=== PATIENT | male | born 1950 | race Caucasian/White ===

== ENCOUNTER → 2018-03-30 | Outpatient (CLI) | payer MEDICARE, OTHER ==
--- NOTE | 2018-03-31 13:05 | RAD ---
Examination: PET W CT SKULL TO MIDTHIGH History: Squamous cell carcinoma with a head and neck. Squamous cell carcinoma of the skin of the scalp. Comparison/Correlation: None Findings: 14.7 F 18 FDG was intravenously administered for that CT exam from the skull base to the proximal thighs. Serum blood glucose at the time of exam was 107 mg/dL. SUV max of the liver is 2.8. Multiple lymph nodes are present at the right level 2A region with intense uptake. SUV max of up to 9 is identified involving these lymph nodes which extend along the right jugular chain to the right supraglottic region. Lymph nodes at the level 2A region measure up to 1.5 cm x 2.6 cm. No enlarged lymph nodes on the left side of the neck. No abnormal uptake on the left side of neck. Postoperative cervical spine fusion noted. Nonspecific uptake at the right sternoclavicular region probably represents degenerative change. No enlarged thoracic lymph nodes. Bilateral mild lower lobe atelectasis is present. Extensive diffuse emphysematous involvement of the lung pérez noted. Linear atelectasis bilaterally the costophrenic sulci noted. Density within the distal trachea which probably represents retained mucus is noted. Pectus excavatum noted. Uptake of the tracer involving the abdomen and pelvis is unremarkable. Significant right hydronephrosis is present with cortical thinning. Findings appear to represent right ureteropelvic junction obstruction. No hydroureter identified. No radiopaque collecting system calculi. No enlarged abdominal or pelvic lymph nodes. Moderate stool colon is present. Urinary bladder is unremarkable. Impression: Extensive lymphadenopathy with intense uptake involving the right level 2A level extending along the right jugular chain to the right supraclavicular region. Right ureteropelvic junction obstruction with marked hydronephrosis. Correlate with history and prior exams if available.
== END | disposition home or self-care (01) ==
LOC: PETSC 13:34
DX: C44.42 Squamous cell carcinoma of skin of scalp and neck (principal); J98.11 Atelectasis; N13.30 Unspecified hydronephrosis; Z98.1 Arthrodesis status
CPT/HCPCS: 78815; A9552

== ENCOUNTER → 2018-04-13 | Outpatient (CLI) | payer MEDICARE, OTHER ==
[~2018-04-13] MED LIST: REGADENOSON 0.4 MG/5 ML DISP.SYRIN. IV ONE
--- NOTE | 2018-04-13 14:40 | CARD ---
MR#: [id number] Date of Study: 04/13/2018 Ordering Physician: SHERWIN ELIZABETH, Referring Physician: SHERWIN ELIZABETH, Tech: Suellen Nieto [facility] APPROVED REPORT EXAM: Two-dimensional and M-mode echocardiogram with Doppler and color Doppler. Other Information Quality : Technically LimitedHR: 96bpm Rhythm : NSRTechnically limited study due to body habitus and smoking. INDICATION Murmur 2D DIMENSIONS RVDd2.2 (2.9-3.5cm)IVSd1.3 (0.7-1.1cm) Aortic Root(2D)3.0 (2.0-3.7cm)LVDd3.5 (3.9-5.9cm) LVOT Diameter2.4 (1.8-2.4cm)PWd1.3 (0.7-1.1cm) LVDs2.5 (2.5-4.0cm)FS (%) 29.9 % SV30.0 mlLVEF(%)58.2 (>50%) M-Mode DIMENSIONS Left Atrium(MM)2.77 (2.5-4.0cm)Aortic Root3.39 (2.2-3.7cm) Aortic Valve AoV Peak Nico.383.3cm/sAoV VTI61.6cm AO Peak GR.58.8mmHgLVOT Peak Nico.104.8cm/s AO Mean GR.29mmHgAVA (VMAX)1.21cm2 LISA (VTI)1.20cm2 Mitral Valve MV E Rqrtbudm24.1cm/sMV E Peak Gr.4mmHg MV DECEL [id number] A Nevftqfl45.6cm/s MV E Mean Gr.2mmHgE/A Ratio0.6 MV A [id number] Pulmonary Valve PV Peak Aagkcrjl81.2cm/s LEFT VENTRICLE The left ventricle is normal size. There is mild concentric left ventricular hypertrophy. The left ve ntricular systolic function is normal The Ejection Fraction is 55-60%. There is normal LV segmental w all motion. Transmitral Doppler flow pattern is Grade I-abnormal relaxation pattern. RIGHT VENTRICLE The right ventricle is normal size. There is normal right ventricular wall thickness. The right ventr icular systolic function is normal. ATRIA The left atrium size is normal. The right atrium size is normal. The interatrial septum is intact wit h no evidence for an atrial septal defect or patent foramen ovale as noted on 2-D or Doppler imaging. AORTIC VALVE A bicuspid aortic valve cannot be excluded. The aortic valve is moderately to severely calcified. Dop pler and Color Flow revealed mild aortic regurgitation. There is moderate valvular aortic stenosis. C alculated aortic valve area is 1.2 cm2 with maximum pressure gradient of 59 mmHg and mean pressure gr adient of 29 mmHg. MITRAL VALVE The mitral valve is normal in structure and function. There is no evidence of mitral valve prolapse. There is no mitral valve stenosis. Doppler and Color Flow revealed no mitral valve regurgitation note d. TRICUSPID VALVE The tricuspid valve is normal in structure and function. Doppler and Color Flow revealed no tricuspid valve regurgitation noted. There is no tricuspid valve prolapse or vegetation. There is no tricuspid valve stenosis. PULMONIC VALVE The pulmonary valve is normal in structure and function. Doppler and Color Flow revealed no pulmonic valvular regurgitation. There is no pulmonic valvular stenosis. GREAT VESSELS The aortic root is normal in size. PERICARDIAL EFFUSION There is no evidence of significant pericardial effusion. Critical Notification Critical Value: No <Conclusion> The left ventricular systolic function is normal The Ejection Fraction is 55-60%. There is normal LV segmental wall motion. Transmitral Doppler flow pattern is Grade I-abnormal relaxation pattern. Moderate valvular aortic stenosis with MG 29 mm Hg and LISA 1.2 cm2.. Mild aortic regurgitation. There is no evidence of significant pericardial effusion. Signed by : Latrell Nava, Electronically Approved : 04/13/2018 14:40:10
--- NOTE | 2018-04-13 15:04 | RAD ---
MR#: [id number] Date of Study: 04/13/2018 Ordering Physician: SHERWIN SEQUEIRA, Referring Physician: CATRINA YEAGER Tech: Brenna Salazar RT (R) (N) APPROVED REPORT Test Type: Pharmacological Stress Nurse/Tech: Cb LEMONS Test Indications: Pre Op clearance Cardiac History: New dx of heart murmur. Dyspnea, Smoker x 50 years Medications: See EMR Medical History: See EMR Resting ECG: SR Resting Heart Rate: 79 bpm Resting Blood Pressure: 151/68mmHg Pretest Chest Pain: No chest pain Nurse/Tech Notes Lungs diminished throughout, Heart tones = Murmur auscultated. Consent: The procedure was explained to the patient in lay terms. Informed consent was witnessed. Donald eout was entered into [facility]. History and Stress Test performed by GELY Salazar Pharm. Details Pharmacologic stress testing was performed using 0.4mg per 5ml of regadenoson given intravenously ove r 7-10 seconds. Stress Symptoms No chest pain or symptoms. POST EXERCISE Reason for Termination: Infusion complete Max HR: 107 bpm Max Blood Pressure: 112/60mmHg Chest Pain: No. Arrhythmia: No. ST Change: No. INTERPRETATION Stress EKG Conclusion: The resting EKG shows a sinus rhythm, small septal Q waves and nonspecific ST segment changes. The stress EKG shows no significant changes from baseline. No EKG evidence of stress-induced ischemia. Imaging Protocol IMAGE PROTOCOL: Rest Tc-99m/stress Tc-99m 1 day Rest: Stress: Viability: Radiopharm.Tc99m BjfkvgyggWo60h Sestamibi Hkvm05iSg 32mCi Duration 17min. 13min. Img Date 04/13/2018 04/13/2018 Inj-Img Shkk25odc. 60min. Rest Admin Site:IV - Left AntecubitalAdministrator:RT Joleen (R)(N) Stress Admin Site: IV - Left AntecubitalAdministrator: GELY Salazar STRESS DATA End Diast. Vol.86.0mlLVEDV index BSA50.0ml End Syst. Vol.34.0mlLVESV index BSA20.0ml Myocardial Edef686.0gEject. Slrourzb00.0% Stress Scores Regional WT2.00Summed WT11.00 Regional WM0.00Summed WM3.00 LV Perfusion The stress scans showed no significant defects. The rest scans showed no significant defects. Nuclear imaging shows no reversible ischemia or infarct. Wall Motion Intact LV systolic function with an ejection fraction of 60%. LV Perf. Quant 17 Seg. SSS0.00 17 Seg. SRS0.00 17 Seg. SDS0.00 Stress Defect Extent (% LAD)0.00Rest Defect Extent (% LAD)0.00Rev. Defect Extent (% LAD)0.00 Stress Defect Extent (% LCX) 0.00Rest Defect Extent (% LCX)0.00Rev. Defect Extent (% LCX)0.00 Stress Defect Extent (% RCA)0.00Rest Defect Extent (% RCA)0.00Rev. Defect Extent (% RCA)0.00 Stress Defect Extent (% BRANDON)0.00Rest Defect Extent (% BRANDON)0.00Rev. Defect Extent (% BRANDON)0.00 Conclusion 1. No EKG evidence of stress-induced ischemia. 2. Nuclear imaging shows no reversible ischemia or infarct. 3. Normal left ventricular systolic function with an ejection fraction of 60%. 4. Low risk Lexiscan nuclear stress test. Signed by : Sherwin Sequeira MD Electronically Approved : 04/13/2018 15:03:34
== END | disposition home or self-care (01) ==
LOC: NM 09:58
PROVIDERS: ATTEND Internal Medicine Cardiovascular Disease
DX: Z01.818 Encounter for other preprocedural examination (principal); I35.2 Nonrheumatic aortic (valve) stenosis with insufficiency; Z87.891 Personal history of nicotine dependence
CPT/HCPCS: 78452; 93017; 93306; 96374; 96375; 96376; A9500; J2785

== ENCOUNTER → 2018-08-24 | Outpatient (CLI) | payer MEDICARE, OTHER ==
[~2018-08-24] MED LIST changes: +ALPR0.5T PO; +ASPI81TA50 PO; +FENT1PAT90 TD; +HEPARIN PF 500 UNIT/5 ML DISP.SYRIN. IV ONE; +LORA1TAB PO; +OXYC1TAB22 PO; +PILO5TAB11 PO; +RANI150T2 PO; -REGADENOSON 0.4 MG/5 ML DISP.SYRIN. IV ONE; +SIMV20TA3 PO; +TAMS0.4C2 PO
--- NOTE | 2018-08-24 14:25 | NUR ---
accessed left chest port for PET scan per asceptic technique per protocol. port de-accessed post hep flush per protocol at this time.
--- NOTE | 2018-08-24 16:40 | RAD ---
FDG tumor localization scan, PET/CT, 08/24/2018: History: Restaging parotid cancer with metastases Following IV injection of 13.0 mCi of 18 F-FDG, imaging was performed from the skull base to the proximal thighs. The noncontrast CT component was performed for attenuation correction and anatomic localization purposes rather than for primary diagnosis. The patient's blood glucose level at the time of injection was 103 MG/DL. Comparison is made to a study from 03/30/2018. Multiple nodular foci of increased FDG uptake in the right neck have markedly regressed since the previous study. There is only mild low-level residual FDG uptake in this region, in a more diffuse than focal pattern. This is likely secondary to radiation therapy. There is persistent streaky muscular uptake in the right suprascapular region. There are several new foci of FDG uptake in the anterior mediastinum and near the level of the suprasternal notch. The most prominent anterior mediastinal focus demonstrates a maximum SUV of 8.7. There is slight associated retrosternal soft tissue thickening. Several of these foci lie near the Port-A-Cath within the left innominate vein. The 18 F-FDG was injected in the left Port-A-Cath. An injection related artifact cannot be entirely excluded. No abnormal pulmonary FDG uptake is seen. Normal GI tract and urinary tract activity is present in the abdomen and pelvis. No hypermetabolic abdominal or pelvic lesion is seen. Incidental CT findings include the presence of pulmonary emphysema. There are elongated parenchymal opacities in the lung bases posteriorly probably representing scarring and/or chronic atelectasis. There is severe right hydronephrosis which has worsened with increasing parenchymal loss. There is mild nonspecific prostatic enlargement. IMPRESSION: 1. Regression of the right cervical hypermetabolic adenopathy. 2. New small foci of increased activity in the anterior mediastinum, likely on a metastatic basis. 3. Worsening severe right hydronephrosis with increasing renal parenchymal loss.
== END | disposition home or self-care (01) ==
LOC: PETSC 12:03
PROVIDERS: ATTEND Radiology Radiation Oncology
DX: C07 Malignant neoplasm of parotid gland (principal); N13.30 Unspecified hydronephrosis; N40.0 Benign prostatic hyperplasia without lower urinary tract symptoms; R59.0 Localized enlarged lymph nodes
CPT/HCPCS: 78815; A9552

== ENCOUNTER 2018-09-12 08:38 | Outpatient (CLI) | payer MEDICARE, OTHER ==
[2018-09-12] VITALS (12 sets, daily range): BP systolic 103–148; BP diastolic 50–86
[~2018-09-12] VITALS: Ht 172.7 cm; Wt 61.2 kg
[~2018-09-12 08:38] MED LIST changes: -HEPARIN PF 500 UNIT/5 ML DISP.SYRIN. IV ONE
[2018-09-12 09:38] LABS: BASO % 1 % (0-3); EOS # 0.2 x10^3/uL (0.0-0.7); EOS % 5 % (0-3); HEMATOCRIT 38.6 % (39.0-53.0); HEMOGLOBIN 12.9 g/dL (13.0-17.5); LYMPH % 26 % (24-48); MEAN CORPUSCULAR HEMOGLOBIN 32 pg (25-35); MEAN CORPUSCULAR HGB CONC 33 g/dL (31-37); MEAN CORPUSCULAR VOLUME 96 fL (79-100); MONO # 0.4 x10^3/uL (0.0-1.1); MONO % 10 % (0-9); NEUT # 2.1 x10^3uL (1.8-7.7); NEUT % 58 % (31-73); PLATELET COUNT 168 x10^3/uL (140-400); RED BLOOD COUNT 4.01 x10^6/uL (4.30-5.70); RED CELL DISTRIBUTION WIDTH 13.2 % (11.5-14.5); WHITE BLOOD COUNT 3.7 x10^3/uL (4.0-11.0)
[2018-09-12] MEDS ORDERED: LIDOCAINE WITH 8.4% SOD BICARB 3 ML DISP.SYRIN. ONE (09:54)
[2018-09-12 09:55] LABS: PROTHROMBIN TIME PATIENT 12.8 SEC (11.7-14.0)
[2018-09-12] MEDS ORDERED: NALOXONE 0.4 MG/ML VIAL. ONE (10:03)
[2018-09-12] MEDS ORDERED: fentaNYL PF VIAL 100 MCG/2 ML VIAL ONE (10:03)
[2018-09-12] MEDS ORDERED: FLUMAZENIL 0.5 MG/5 ML VIAL. IV ONE (10:03)
[2018-09-12] MEDS ORDERED: MIDAZOLAM HCL/PF 2 MG/2 ML VIAL. ONE (10:03)
[2018-09-12] MEDS ORDERED: MIDAZOLAM HCL/PF 2 MG/2 ML VIAL. IV ONE (10:15)
[2018-09-12] MEDS ORDERED: fentaNYL PF VIAL 100 MCG/2 ML VIAL IV ONE (10:15)
[2018-09-12] MEDS ORDERED: LIDOCAINE WITH 8.4% SOD BICARB 3 ML DISP.SYRIN. IJ ONE (10:15)
--- NOTE | 2018-09-12 10:30 | PDOC ---
MODERATE SEDATION ASSESSMENT RISKS/ALTERNATIVES Risks/Alternatives Risks and alternatives of this type of sedation and procedure discussed with: RISK/ALTERNATIVES: Patient H & P ON CHART H & P H & P on chart and reviewed for co-morbid conditions and appropriate labs. H&P ON CHART: Yes STATUS PREG STATUS ASSESSED: Yes MEDS/ALLERGIES REVIEWED Meds/Allergies Reviewed Medications and Allergies including time and route of recently administered narcotics and sedatives. MEDS/ALLERGIES REVIEWED: Yes ASA RATING ASA RATING: II AIRWAY ASSESSMENT Airway Assessment Airway patency, oral function limitations, presence of caps, crowns, dentures, partials, and ability to extend neck assessed. AIRWAY ASSESSMENT: Yes MALLAMPATI SCORE MALLAMPATI SCORE: II PRE-SEDATION ASSESSMENT PRE-SEDATION ASSESSMENT: Yes TOOTIE BAIG MD Sep 12, 2018 10:30
--- NOTE | 2018-09-12 10:31 | PDOC ---
BRIEF OPERATIVE NOTE Pre-Op Diagnosis Parotid cancer and mediastinal mass Post-Op Diagnosis same Procedure Performed CT Fine needle biopsy of mediastinal mass Surgeon April Anesthesia Type: Conscious Sedation Specimens Obtained 3 x 25g fine needle aspirates Complications No immediate TOOTIE BAIG MD Sep 12, 2018 10:31
--- NOTE | 2018-09-12 10:33 | PDOC1 ---
History and Physical Date of Procedure Date of Admission History of Present Illness Reason for Visit Adult with parotid cancer and mediastinal mass Past Medical History Past Medical History see nursing pre-op assessment Current Medications Current Medications Current Medications Lidocaine/Sodium Bicarbonate (Buffered Lidocaine 1%) 3 ml STK-MED ONCE .ROUTE ; Start 09/12/18 at 09:54; Stop 09/12/18 at 09:55; Status DC Midazolam HCl (Versed) 2 mg STK-MED ONCE .ROUTE ; Start 09/12/18 at 10:03; Stop 09/12/18 at 10:04; Status DC Fentanyl Citrate (Fentanyl 2ml Vial) 100 mcg STK-MED ONCE .ROUTE ; Start at 10:03; Stop 09/12/18 at 10:04; Status DC Flumazenil (Romazicon) 0.5 mg STK-MED ONCE IV ; Start 09/12/18 at 10:03; Stop at 10:04; Status DC Naloxone HCl (Narcan) 0.4 mg STK-MED ONCE .ROUTE ; Start 09/12/18 at 10:03; Stop 09/12/18 at 10:04; Status DC Lidocaine/Sodium Bicarbonate (Buffered Lidocaine 1%) 3 ml 1X ONCE IJ ; Start at 10:15; Stop 09/12/18 at 10:16; Status DC Midazolam HCl (Versed) 2 mg 1X ONCE IV ; Start 09/12/18 at 10:15; Stop at 10:16; Status DC Fentanyl Citrate (Fentanyl 2ml Vial) 100 mcg 1X ONCE IV ; Start 09/12/18 at 10: 15; Stop 09/12/18 at 10:16; Status DC Active Scripts Active Reported Salagen (Pilocarpine Hcl) 5 Mg Tablet 5 Mg PO TID Xanax (Alprazolam) 0.5 Mg Tablet 1 Tab PO TID Tamsulosin Hcl 0.4 Mg Cap.er.24h 0.4 Mg PO DAILY Simvastatin 20 Mg Tablet 20 Mg PO HS Ranitidine Hcl 150 Mg Tablet 150 Mg PO BID Lorazepam 1 Mg Tablet 1 Mg PO TID Percocet 10-325 Mg Tablet (Oxycodone/Acetaminophen) 1 Each Tablet 1 Tab PO PRN Q6HRS PRN Allergies Allergies: Coded Allergies: No Known Drug Allergies (Unverified , 04/13/18) Physical Exam Vital Signs Vital Signs Date Time Temp Pulse Resp B/P (MAP) Pulse Ox O2 Delivery O2 Flow Rate FiO2 09/12/18 10:25 74 14 117/59 (78) 96 Nasal Cannula 2.0 09/12/18 10:00 98.0 98.0 Other see nursing pre-op assessment Assessment Assessment Parotid cancer and mediastinal mass Plan Plan CT Fine needle biopsy TOOTIE BAIG MD Sep 12, 2018 10:33
[2018-09-12] MEDS ORDERED: HEPARIN PF 500 UNIT/5 ML DISP.SYRIN. IV ONE (12:30)
--- NOTE | 2018-09-12 12:51 | NUR ---
discharge notes; Pt is discharged home. Pt's VSS is stable. Pt ate lunch. Port-A- Cath was deaccessed by the other nurse, Keily. Discharge instructions were reviewed by this nurse with pt and family member. Pt and family member verbalized understanding. Pt's belongings were back to pt. Pt was taken to lobby by Keily LEMONS via W/C.
--- NOTE | 2018-09-13 08:43 | RAD ---
Procedure: CT-guided fine-needle biopsy of a retrosternal soft tissue mass Clinical Indication: 68-year-old with history of parotid tumor, abnormal retrosternal soft tissue mass on PET scan Sedation: Conscious sedation was administered with a total intraprocedural dldl-vp-psqu time of 20 minutes. The patient was monitored by a qualified independent observer throughout the time of sedation. Please refer to the medical record for exact doses of medications utilized to achieve moderate sedation. Antibiotics: None Sterility: The procedure was performed in its entirety using appropriate elements of sterile technique. Consent: The procedure was explained in its entirety to the patient or the patients designated floor representative by a member of the treatment team, including a discussion of the risks, benefits and commonly accepted alternatives to the procedure, as well as the expected consequences of no therapy whatsoever. Discussion of the risks included, but was not limited to, those that are most frequent and those that are rare but possibly severe or life-threatening, as well as the possibility of unforeseen complications. Technique and Findings: Following informed consent, the patient was prepped and draped in usual sterile fashion. 1% lidocaine was used to achieve local anesthesia over the area of interest. A small dermatotomy was made. Under periodic CT surveillance, a 25-gauge needle was advanced into the most cephalic aspect of the retrosternal soft tissue mass. The suprasternal notch. Due to close proximity of this mass to the great vessels, as well as the adjacent veins and nerves, core biopsy was not performed. Instead, a 25-gauge needle was used to perform fine-needle aspiration of the soft tissue density, with the specimen. By an on-site anatomic pathology manager. A total of 3 separate passes using 3 separate 25-gauge needles were performed. Following removal of the final needle, hemostasis was achieved with manual compression. Postprocedural CT scan demonstrated no mediastinal hematoma. Complications: No immediate Impression: 1. CT-guided fine-needle biopsy of a retrosternal soft tissue mass as described PQRS Compliance Statement: One or more of the following individualized dose reduction techniques were utilized for this examination: 1. Automated exposure control 2. Adjustment of the mA and/or kV according to patient size 3. Use of iterative reconstruction technique
--- NOTE | 2018-09-14 16:12 | PATHOLOGY ---
Note [facility] Accession Number: [id number] TESTS RESULT FLAG UNITS REF RANGE LAB Clinician Provided Cytology Information No. of containers..01 Other (Miscellaneous) Source: [A] 01 MEDIASTINAL MASS FNA DIAGNOSIS: [A] 02 MEDIASTINAL MASS FNA POSITIVE FOR MALIGNANT CELLS. CLUSTERS OF MALIGNANT CELLS HAVING FEATURES OF POORLY DIFFERENTIATED CARCINOMA, FAVOR ADENOCARCINOMA. THE CASE IS ALSO EXAMINED BY DR. HILL, CYTOPATHOLOGIST, WHO CONCURS WITH THE DIAGNOSIS. THIS INTERPRETATION INCLUDES EVALUATION OF A CELL BLOCK. Signed out by: 02 Jovi Gandara MD, Pathologist NPI- [id number] Performed by: Grant Deluca, Guide Domestic [employer] ([facility]) Gross description: 01 30ML, PINK, CLOUDY /LCS FLAG LEGEND: L-Low Normal,H-High Normal,LL-Alert Low,HH-Alert High <-Panic Low,>-Panic High,A-Abnormal,AA-Critical Abnormal Performed at: [facility] [address] [place] [address] Michael Pierce MD, [address] [facility] [address] [place] [address] Jovi Gandara MD, Specimen Comment: A courtesy copy of this report has been sent to Specimen Comment: [phone]. Specimen Comment: Report sent to Performed at: 01 [facility] [place] [address], [place], [place] [id number] MD Michael Pierce MD Phone: [phone]
== END 2018-09-12 12:55 | disposition home or self-care (01) ==
LOC: INTRAD 08:38
PROVIDERS: ATTEND Radiology Radiation Oncology
DX: C78.1 Secondary malignant neoplasm of mediastinum (principal); C07 Malignant neoplasm of parotid gland; Z79.01 Long term (current) use of anticoagulants
CPT/HCPCS: 10009; 36415; 85025; 85610; J2250; J3010; 88173; 88305; 99152

== ENCOUNTER → 2018-11-15 | Outpatient (CLI) | payer MEDICARE, OTHER ==
[2018-09-12 12:15] VITALS: BP 111/57
[~2018-11-15] MED LIST changes: +HEPARIN PF 500 UNIT/5 ML DISP.SYRIN. IV ONE
[2018-11-15 08:55] LABS: CREATININE 1.5 mg/dL (0.7-1.3); GFR 46.7
--- NOTE | 2018-11-15 10:46 | RAD ---
CT of the neck without contrast, 11/15/2018: History: Parotid cancer, left occipital region mass Noncontrast scans were obtained and compared to a study from 03/22/2018. The study is compromised by the lack of IV contrast. The right cervical adenopathy is seen on the previous study appears to have regressed, however, the residual densities cannot be clearly from normal structures due to the lack of IV contrast and obscuration of fat planes in the right neck. There are residual abnormal densities along the inferior aspect of the right parotid gland. The submandibular glands are unremarkable. No laryngeal or mass is seen. The thyroid gland is unremarkable. Images through the lower neck include a portion of the upper mediastinum. There is a 9 mm lymph node between the the innominate artery and the proximal left subclavian artery which was not present on the previous study. There is also abnormal soft tissue thickening in the sternal notch which was not present on the prior study. This suprasternal density was apparently biopsied on 09/12/2018 and correlation with those biopsy results is suggested. There are moderate scattered degenerative changes in the cervical spine. There as been an anterior cervical spinal fusion at C5-6 with a fixation plate and screws in place. No destructive bony lesion is seen. IMPRESSION: 1. Regression of the right cervical adenopathy since 03/22/2018. Residual disease is poorly defined due to lack of IV contrast enhancement on this study. Follow-up PET/CT imaging is suggested. 2. A mildly prominent upper mediastinal lymph node and increased soft tissue density in the suprasternal region has developed since 03/22/2018. Correlation with recent biopsy results is suggested PQRS Compliance Statement: One or more of the following individualized dose reduction techniques were utilized for this examination: 1. Automated exposure control 2. Adjustment of the mA and/or kV according to patient size 3. Use of iterative reconstruction technique
== END | disposition home or self-care (01) ==
LOC: CT 08:21
PROVIDERS: ATTEND Radiology Radiation Oncology
DX: J98.59 Other diseases of mediastinum, not elsewhere classified (principal); R59.0 Localized enlarged lymph nodes; M47.812 Spondylosis without myelopathy or radiculopathy, cervical region; Z98.1 Arthrodesis status; Z85.858 Personal history of malignant neoplasm of other endocrine glands
CPT/HCPCS: 36415; 70490; 82565